=== PATIENT | female | born 2000 | race African-American/Black ===

== ENCOUNTER 2023-07-26 09:36 | Emergency (ER) | payer OTHER ==
[~2023-07-26] VITALS: Ht 175.3 cm; Wt 91.0 kg
[2023-07-26 13:25] VITALS: BP 139/83; TEMP 96.7; O2SAT 100
[2023-07-26] MEDS ORDERED: CIPR0.3S37 OP (13:36)
== END 2023-07-26 13:49 | disposition home or self-care (01) ==
LOC: M ED 09:36
DX: J02.9 Acute pharyngitis, unspecified (principal); H10.33 Unspecified acute conjunctivitis, bilateral; Z79.2 Long term (current) use of antibiotics

== ENCOUNTER 2023-09-13 18:18 | Emergency (ER) | payer OTHER ==
[~2023-09-13] VITALS: Ht 175.3 cm; Wt 84.1 kg
[~2023-09-13 18:18] MED LIST: CIPR0.3S37 OP
[2023-09-13] MEDS: KETOROLAC 30 MG/ML 1ML VIAL IV ONE (21:14)
[2023-09-13] MEDS: CYCLOBENZAPRINE 10MG TABLET PO ONE (21:14)
[2023-09-13] MEDS: NS 1,000 ML IV ONE (21:15)
[2023-09-13 21:53] LABS: LIPASE 30 U/L (12-53)
[2023-09-13 21:55] LABS: ALKALINE PHOSPHATASE 62 U/L (46-116); ALT/SGPT 13 U/L (7.0-40); AST/SGOT 15 U/L (<34); BILIRUBIN,DIRECT 0.2 MG/DL (<0.4); BILIRUBIN,TOTAL 0.5 MG/DL (0.3-1.2); BLOOD UREA NITROGEN 11 MG/DL (9-23); CALCIUM LEVEL 9.3 MG/DL (8.5-10.1); CARBON DIOXIDE LEVEL 27 MMOL/L (20-31); CHLORIDE LEVEL 103 MMOL/L (98-107); CREATININE FOR GFR 0.82 MG/DL (0.55-1.30); GLOMERULAR FILTRATION RATE > 60.0 (>60); GLUCOSE, FASTING 75 MG/DL (60-100); POTASSIUM SERUM 4.5 MMOL/L (3.5-5.1); SODIUM LEVEL 137 MMOL/L (136-145); TOTAL PROTEIN 7.7 G/DL (5.7-8.2)
[2023-09-13 22:22] LABS: BASO % 0.4 % (0.0-1.0); EOS % 0.5 % (0.0-3.0); HEMATOCRIT 36.5 % (36.0-47.0); HEMOGLOBIN 11.6 g/dl (12.0-15.5); LYMPH # 2.4 10^3/uL (1.5-5.0); LYMPH % 29.8 % (24.0-44.0); MEAN CORPUSCULAR HGB CONC 31.8 g/dl (32.0-36.5); MONO # 0.3 10^3/uL (0.0-0.8); MONO % 3.9 % (2.0-8.0); NEUTROPHILS # 5.3 10^3/uL (1.5-8.5); NEUTROPHILS % 65.2 % (36.0-66.0); PLATELET COUNT, AUTOMATED 220 10^3/uL (150-450); RED BLOOD COUNT 4.15 10^6/uL (4.00-5.40); WHITE BLOOD COUNT 8.1 10^3/uL (4.0-10.0)
[2023-09-13] MEDS: CIPROFLOXACIN 500MG TABLET PO ONE (23:02)
[2023-09-13] MEDS ORDERED: CIPR-249 PO (23:39)
[2023-09-13] MEDS ORDERED: ANUSOL HC CREAM 30GM TOP ONE (23:55)
[2023-09-13] MEDS ORDERED: HYDR2.5C TOP (23:55)
[2023-09-14 00:02] VITALS: BP 129/87; TEMP 98.1; O2SAT 99
[2023-09-14] MEDS: ANUSOL HC CREAM 30GM TOP ONE (00:07)
== END 2023-09-14 00:08 | disposition home or self-care (01) ==
LOC: M ED 18:18
DX: N39.0 Urinary tract infection, site not specified (principal); F10.10 Alcohol abuse, uncomplicated; Z79.2 Long term (current) use of antibiotics; Z79.899 Other long term (current) drug therapy
CPT/HCPCS: 80048; 80076; 81001; 83690; 84702; 85025; 87086; 87486; 87581; 87633; 87798; 93005; 96361; 96374; 99284; J1885